=== PATIENT | female | born 1990 | race American Indian/Alaskan Native ===

== ENCOUNTER 2019-04-06 16:08 | Emergency (ER) | payer SELFPAY ==
[2019-04-06 16:37] VITALS: BP 115/75
--- NOTE | 2019-04-06 16:42 | Emergency Department Report ---
Chief Complaint: Upper Respiratory Infection Stated Complaint: FLU SX Time Seen by Provider: 04/06/19 16:39 - HPI History of Present Illness: This 29-year-old female presents with upper respiratory infection symptoms such as cold cough and congestion for the past couple days. Patient states she did take a Motrin. She denies fevers/chills/nausea vomiting abdominal pain or any other symptoms - ROS Review of Systems: As noted in HPI - Exam Vital Signs: Vital Signs 04/06/19 16:35 Temperature 98.5 F Pulse Rate 77 Respiratory 15 Rate Blood Pressure 115/75 O2 Sat by Pulse 100 Oximetry Physical Exam: GENERAL: Alert and oriented x3, no apparent distress, Normal Gait, atraumatic. LUNGS: Symetrical with respiration, No wheezing, no rales or crackles, CTAB. HEART: S1, S2 present, regular rate and rhythm without murmur, no rubs, no gallops. Non tender to palpation SKIN: Warm and dry, No lesions, No ulceration or induration present. MSE screening note: Focused history and physical exam performed. Due to findings the following was ordered: ED Medical Decision Making - Medical Decision Making Discussed the patient this is not a medical emergency. Vital signs are stable. Patient was sent Dr. Pierre Hardwick to follow up there after leaving ER. ED Disposition for MSE Clinical Impression: Flu-like symptoms Disposition: MED SCREENING EXAM-LEFT Is pt being admited?: No Does the pt Need Aspirin: No Condition: Stable Instructions: Upper Respiratory Infection (ED) Additional Instructions: Follow up with Dr elizalde today Referrals: PRIMARY CARE, [Primary Care Provider] - 3-5 Days Forms: Accompanied Note, Work/School Release Form(ED) Time of Disposition: 16:41
== END 2019-04-06 16:41 | disposition left against medical advice (07) ==
LOC: ED 16:08
DX: R05 Cough (principal); R09.81 Nasal congestion
CPT/HCPCS: 99281

== ENCOUNTER 2021-02-19 09:32 | Emergency (ER) | payer OTHER ==
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
[2021-02-19 11:10] VITALS: BP 108/70
== END 2021-02-19 11:07 | disposition home or self-care (01) ==
LOC: ED 09:32
DX: M54.50 Low back pain, unspecified (principal); M25.511 Pain in right shoulder; M25.512 Pain in left shoulder; M54.2 Cervicalgia; Z79.899 Other long term (current) drug therapy; V89.2XXA Person injured in unspecified motor-vehicle accident, traffic, initial encounter; Y93.89 Activity, other specified; Y92.488 Other paved roadways as the place of occurrence of the external cause; Y99.8 Other external cause status
CPT/HCPCS: 99281

== ENCOUNTER → 2021-04-27 | Emergency (ER) | payer OTHER | LOC: ED 15:16 | DX: R07.9 Chest pain, unspecified (principal); Z20.822 Contact with and (suspected) exposure to COVID-19; Z53.21 Procedure and treatment not carried out due to patient leaving prior to being seen by health care provider ==

== ENCOUNTER 2021-04-30 13:03 | Emergency (ER) | payer OTHER ==
[2021-04-30 13:15] VITALS: BP 126/71
--- NOTE | 2021-04-30 14:03 | Emergency Department Report ---
- General Chief Complaint: Chest Pain Stated Complaint: EXTREME CHEST PAIN, TROUBLE BREATHING Time Seen by Provider: 04/30/21 13:43 Source: patient Mode of arrival: Ambulatory Limitations: No Limitations - History of Present Illness Initial Comments: pt is a 31-year-old female who presents the emergency room with complaints of URI symptoms that began 5 days ago. She has associated chest pain across the chest, shortness of breath, cough, chills, body aches, fatigue. She denies any fever, vomiting, diarrhea, sore throat. Patient denies any past medical history. No allergies to medications. She has not been vaccinated for COVID- 19. She has not been tested since becoming sick. She denies any known sick contacts or recent travel. - Related Data Previous Rx's Medication Instructions Recorded Last Taken Type Doxylamine Succinate/Vit B6 1 each PO QHS PRN #30 tablet. 04/13/16 Unknown Rx [Olive [place] 10-10 mg Tablet] Vit Calc,Iron,Folic 1 each PO QDAY #30 tablet 04/13/16 Unknown Rx [ Vitamins] Naproxen 500 mg PO 20 PRN #20 tablet 02/19/21 Unknown Rx methOCARBAMOL [Robaxin TAB] 750 mg PO BID PRN #14 tab 02/19/21 Unknown Rx Acetaminophen/Codeine [Tylenol 1 tab PO Q6H PRN #10 tab 04/30/21 Unknown Rx /Codeine # 3 tab] Benzonatate [Tessalon Perles] 100 mg PO Q8HR PRN #12 capsule 04/30/21 Unknown Rx guaiFENesin ER [Mucinex ER] 600 mg PO Q12H #14 tablet.er 04/30/21 Unknown Rx Allergies Allergy/AdvReac Type Severity Reaction Status Date / Time No Known Allergies Allergy Verified 04/13/16 03:57 ED Review of Systems ROS: Stated complaint: EXTREME CHEST PAIN, TROUBLE BREATHING Other details as noted in HPI Comment: All other systems reviewed and negative ED Past Medical Hx - Social History Smoking Status: Never Smoker Substance Use Type: None - Medications Home Medications: Home Medications Medication Instructions Recorded Confirmed Last Taken Type Doxylamine Succinate/Vit B6 1 each PO QHS PRN #30 tablet. 04/13/16 Unknown Rx [Olive [place] 10-10 mg Tablet] Vit Calc,Iron,Folic 1 each PO QDAY #30 tablet 04/13/16 Unknown Rx [ Vitamins] Naproxen 500 mg PO 20 PRN #20 tablet 02/19/21 Unknown Rx methOCARBAMOL [Robaxin TAB] 750 mg PO BID PRN #14 tab 02/19/21 Unknown Rx Acetaminophen/Codeine [Tylenol 1 tab PO Q6H PRN #10 tab 04/30/21 Unknown Rx /Codeine # 3 tab] Benzonatate [Tessalon Perles] 100 mg PO Q8HR PRN #12 capsule 04/30/21 Unknown Rx guaiFENesin ER [Mucinex ER] 600 mg PO Q12H #14 tablet.er 04/30/21 Unknown Rx ED Physical Exam - General Limitations: No Limitations General appearance: alert, in no apparent distress - Head Head exam: Present: atraumatic, normocephalic - Eye Eye exam: Present: normal appearance - ENT ENT exam: Present: mucous membranes moist - Respiratory Respiratory exam: Present: normal lung sounds bilaterally. Absent: respiratory distress, wheezes, rales, rhonchi, stridor, chest wall tenderness, accessory muscle use, decreased breath sounds, prolonged expiratory - Cardiovascular Cardiovascular Exam: Present: regular rate, normal rhythm, normal heart sounds. Absent: systolic murmur, diastolic murmur, rubs, gallop - Neurological Exam Neurological exam: Present: alert, oriented X3 - Psychiatric Psychiatric exam: Present: normal affect, normal mood - Skin Skin exam: Present: warm, dry, intact ED Course Vital Signs 04/30/21 13:14 Temperature 98.4 F Pulse Rate 55 L Respiratory 16 Rate Blood Pressure 126/71 O2 Sat by Pulse 100 Oximetry ED Medical Decision Making - EKG Data EKG shows normal: sinus rhythm, axis, ST-T waves Rate: bradycardia (53 bpm) - EKG Data 04/30/21 14:03 low voltage no STEMI - Radiology Data Radiology results: report reviewed Ordering Physician: MAGGY KOEHLER Date of Service: 04/30/21 Procedure(s): XR chest routine 2V Accession Number(s): [id number] cc: MAGGY KOEHLER Fluoro Time In Minutes: CHEST PA AND LATERAL VIEWS INDICATION: cough, sob, cp. COMPARISON: None. FINDINGS: Support devices: None. Heart: Within normal limits. Lungs/Pleura: No acute pulmonary or pleural findings. IMPRESSION: 1. No acute findings. Signer Name: Addy Whitaker MD Signed: 04/30/2021 2:23 PM Workstation Name: [id number] Transcribed By: CAT Dictated By: Addy Whitaker MD Electronically Authenticated By: Addy Whitaker MD Signed Date/Time: 04/30/211422 DD/ 22 TD/TT: - Medical Decision Making pt is a 31-year-old female who presents the emergency room with complaints of URI symptoms that began 5 days ago. She has associated chest pain across the chest, shortness of breath, cough, chills, body aches, fatigue. She denies any fever, vomiting, diarrhea, sore throat. Patient denies any past medical history. No allergies to medications. She has not been vaccinated for COVID- 19. She has not been tested since becoming sick. She denies any known sick contacts or recent travel. Vitals are stable, no tachycardia, no hypoxia, no fever. Breath sounds are clear bilaterally, no wheezing, no rales, no rhonchi. EKG performed prior to my examination with sinus bradycardia and low voltage, otherwise normal, no signs of pericarditis. Chest x-ray with no acute process.PERC criteria negative for PE, PE unlikely. Symptoms and examination appear likely consistent with URI. Discussed supportive care and symptomatic treatment with patient and the importance of oral hydration. Advised patient please take medication as prescribed. Increase your fluid intake. Follow-up with your primary care doctor for reexamination. Return to the emergency room for any new or worsening symptoms. Recommend outpatient COVID-19 testing and if positive will need to self quarantine in accordance with the CDC guidelines. Critical care attestation.: If time is entered above; I have spent that time in minutes in the direct care of this critically ill patient, excluding procedure time. ED Disposition Clinical Impression: URI (upper respiratory infection) Qualifiers: URI type: unspecified URI Qualified Code(s): J06.9 - Acute upper respiratory infection, unspecified Disposition: HOME / SELF CARE / HOMELESS Is pt being admited?: No Does the pt Need Aspirin: No Condition: Stable Instructions: Viral Respiratory Infection Additional Instructions: please take medication as prescribed. Increase your fluid intake. Follow-up with your primary care doctor for reexamination. Return to the emergency room for any new or worsening symptoms. Recommend outpatient COVID-19 testing and if positive will need to self quarantine in accordance with the CDC guidelines. Prescriptions: guaiFENesin ER [Mucinex ER] 600 mg PO Q12H #14 tablet.er Benzonatate [Tessalon Perles] 100 mg PO Q8HR PRN #12 capsule PRN Reason: cough Acetaminophen/Codeine [Tylenol /Codeine # 3 tab] 1 tab PO Q6H PRN #10 tab PRN Reason: Pain , Severe (7-10) Referrals: PRIMARY CARE, [Primary Care Provider] - 3-5 Days GENEVIEVE RAMIREZ MD [Staff Physician] - 3-5 Days [facility] [Provider Group] - 3-5 Days Time of Disposition: 14:33 Print Language: [place] ISLAND[place]
--- NOTE | 2021-04-30 14:28 | XRay Report ---
CHEST PA AND LATERAL VIEWS INDICATION: cough, sob, cp. COMPARISON: None. FINDINGS: Support devices: None. Heart: Within normal limits. Lungs/Pleura: No acute pulmonary or pleural findings. IMPRESSION: 1. No acute findings. Signer Name: Addy Whitaker MD Signed: 04/30/2021 2:23 PM Workstation Name: [id number]
--- NOTE | 2021-05-01 12:10 | Electrocardiograph Report ---
[facility] Test Date: 2021-04-30 Test Time: 13:18:48 Pat Name: MUNA DICKSON Department: Room: Gender: F Senior Property Accountant: HAZEL : 1990 Requested By: DAWSON CLARK Order Number: [id number] Reading MD: Alessandra Neri Measurements Intervals [place] Rate: 53 P: 22 DC: 155 QRS: 70 QRSD: 81 T: 38 QT: 426 QTc: 402 Interpretive Statements Sinus bradycardia Low voltage, precordial leads No previous ECG available for comparison Electronically Signed On 05-01-2021 12:09:41 EST by Alessandra Neri
== END 2021-04-30 14:49 | disposition home or self-care (01) ==
LOC: ED 13:03
DX: Q04.3 Other reduction deformities of brain (principal)
CPT/HCPCS: 71046; 93005; 99283